=== PATIENT | male | born 1965 | race Caucasian/White ===

== ENCOUNTER 2023-03-24 19:29 | Emergency (ER) | payer OTHER ==
[~2023-03-24] VITALS: Ht 170.2 cm; Wt 85.0 kg
[2023-03-24 19:42] VITALS: BP 140/78
[2023-03-24] MEDS ORDERED: CYCL10TA21 MT (21:45)
[2023-03-24] MEDS ORDERED: IBUP-2029 MT (21:45)
[2023-03-24] MEDS ORDERED: KETOROLAC 60MG/2ML VIAL IM ONE (21:45)
== END 2023-03-24 22:06 | disposition home or self-care (01) ==
LOC: ER 19:29
DX: S70.01XA Contusion of right hip, initial encounter (principal); S80.02XA Contusion of left knee, initial encounter; S80.01XA Contusion of right knee, initial encounter; W18.30XA Fall on same level, unspecified, initial encounter; Y93.89 Activity, other specified; Y92.89 Other specified places as the place of occurrence of the external cause; Y99.8 Other external cause status
CPT/HCPCS: 73502; 73562; 96372; 99284; J1885

== ENCOUNTER 2023-06-23 17:13 | Emergency (ER) | payer OTHER ==
[~2023-06-23] VITALS: Ht 170.2 cm; Wt 75.0 kg
[~2023-06-23 17:13] MED LIST: CYCL10TA21 MT; IBUP-2029 MT
[2023-06-23 17:20] VITALS: BP 135/76; PULSE 97; RESP 18; TEMP 98.9; O2SAT 98
== END 2023-06-23 19:59 | disposition home or self-care (01) ==
LOC: ER 17:13
DX: U07.1 COVID-19 (principal)
CPT/HCPCS: 99281

== ENCOUNTER 2024-06-23 17:19 | Emergency (ER) | payer OTHER ==
[~2024-06-23] VITALS: Ht 170.2 cm; Wt 85.0 kg
[~2024-06-23 17:19] MED LIST changes: +AMOX1TAB16 MT; -IBUP-2029 MT; +IBUP-2029 PO; +METR-167 PO; +ONDA4TAB50 PO; +PROT20 PO
[2024-06-23 17:36] VITALS: O2SAT 99
[2024-06-23 18:43] LABS: BASOPHILS % 0.3 % (0.0-2.0); EOSINOPHILS % 0.9 % (0.0-5.0); HEMATOCRIT. 42.6 % (42.0-52.0); HEMOGLOBIN. 14.6 g/dL (14.0-18.0); LYMPHOCYTES % 20.5 % (20.0-50.0); MEAN CORPUSCULAR HEMOGLOBIN 30.7 pg (28.0-32.0); MEAN CORPUSCULAR HGB CONC 34.4 g/dL (31.0-37.0); MEAN CORPUSCULAR VOLUME 89.3 fL (80.0-94.0); MEAN PLATELET VOLUME 9.3 fl (7.4-10.4); MONOCYTES % 8.2 % (2.0-8.0); NEUTROPHILS % 70.1 % (40.0-76.0); PLATELET 193 x1000/uL (130-400); RED BLOOD CELL COUNT 4.77 mill/uL (4.7-6.1); RED CELL DISTRIBUTION WIDTH 12.8 % (11.6-14.6); WHITE BLOOD COUNT 8.6 x1000/uL (4.5-11.0)
[2024-06-23 18:47] LABS: CHLORIDE 106 mEq/L (98-107); POTASSIUM 4.3 mEq/L (3.5-5.1); SODIUM 140 mEq/L (136-145)
[2024-06-23 18:48] LABS: CARBON DIOXIDE 31 mEq/L (21-32)
[2024-06-23 18:49] LABS: CALCIUM 9.4 mg/dL (8.7-10.4)
[2024-06-23 18:53] LABS: CREATININE 1.1 mg/dL (0.6-1.3); GLUCOSE 98 mg/dL (70-105); UREA NITROGEN BLOOD 21 mg/dL (9-23)
[2024-06-23 18:58] LABS: THYROID STIMULATING HORMONE 1.59 uIU/mL (0.55-4.78)
[2024-06-23 19:29] LABS: TROPONIN I HIGH SENSITIVITY < 4 ng/L (3.0-53)
[2024-06-23 20:02] VITALS: BP 141/80; PULSE 69; RESP 18; TEMP 36.78072; O2SAT 99
== END 2024-06-23 20:31 | disposition home or self-care (01) ==
LOC: ER 17:19
DX: R00.2 Palpitations (principal)
CPT/HCPCS: 36415; 71045; 80048; 84443; 84484; 85025; 93005; 99284